=== PATIENT | female | born 1945 ===

== ENCOUNTER 2019-08-19 10:11 | Emergency (ER) | payer OTHER ==
[~2019-08-19] VITALS: Ht 160 cm; Wt 122.5 kg
[~2019-08-19 10:11] MED LIST: ACIPHEX20 MG PO; ASA325 M1 PO; COZAAR50 MG PO; METFORMIN HCL500 MG PO; SYNTHROID75 MCG PO
[2019-08-19] MEDS ORDERED: XARELTO20 M1 PO (10:33)
[2019-08-19] MEDS ORDERED: LOSARTAN POTAS100 MG PO (10:33)
[2019-08-19] MEDS ORDERED: METFORMIN HCL1000 MG (10:33)
[2019-08-19] MEDS ORDERED: SYNTHROID88 MCG PO (10:34)
[2019-08-19] MEDS ORDERED: NEURONTIN600 M1 PO (10:34)
[2019-08-19] MEDS ORDERED: ZITHROMAX500 MG PO (13:27)
[2019-08-19] MEDS ORDERED: INTESTINEX680 M2 PO (13:27)
[2019-08-19] MEDS ORDERED: DIABETIC TUSSI118 ML PO (13:30)
== END 2019-08-19 14:27 | disposition home or self-care (01) ==
LOC: ER 10:11
DX: B33.8 Other specified viral diseases (principal); B96.0 Mycoplasma pneumoniae [M. pneumoniae] as the cause of diseases classified elsewhere